=== PATIENT | female | born 1960 | race Caucasian/White ===

== ENCOUNTER 2017-02-17 06:22 | Day surgery (SDC) | payer OTHER ==
[2016-08-26 09:38] VITALS: BMI 36.3
[2017-02-17] MEDS ORDERED: Propofol 10 mg/ml Inj (20 ML) ONE ×2 (08:13→08:30)
--- NOTE | 2017-02-17 08:38 | CP.SDSHP ---
Same Day Surgery H & P - History Proposed Procedure: colonoscopy Pre-Op Diagnosis: colitis - Previous Medical/Surgical History Pulmonary: Asthma - Allergies Allergies: Allergies No Known Allergies Allergy (Verified 08/26/16 09:38) - Physical Exam Vital Signs: Vital Signs 02/17/17 06:55 Temperature 97.4 F L Pulse Rate 86 Respiratory 16 Rate Blood Pressure 109/77 O2 Sat by Pulse 98 Oximetry Mental Status: Alert & Oriented x3 Neuro: WNL Heart: WNL Lungs: WNL GI: WNL - {Optional Preform as Required} Abdomen: WNL - Impression Impression: colitis Pt. Evaluated Today:Candidate for Anesthesia & Procedure: Yes - Date & Time Date: 02/17/17 Time: 08:00 Short Stay Discharge - Short Stay Discharge Admitting Diagnosis/Reason for Visit: COLITIS Disposition: HOME/ ROUTINE
[2017-02-17 09:08] VITALS: O2SAT 100
[2017-02-17 10:44] VITALS: RESP 15; TEMP 97.2
[2017-02-17 10:45] VITALS: BP 111/65; PULSE 72
== END 2017-02-17 10:35 | disposition home or self-care (01) ==
LOC: C.ENDO 06:22
PROVIDERS: ATTEND Internal Medicine Gastroenterology
DX: K52.9 Noninfective gastroenteritis and colitis, unspecified (principal); D12.4 Benign neoplasm of descending colon; D12.2 Benign neoplasm of ascending colon
CPT/HCPCS: 45388; 88305; J2704; J7040

== ENCOUNTER 2017-03-22 10:46 | Emergency (ER) | payer OTHER ==
[2017-03-22 10:46] VITALS: BMI 36.3
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
[2017-03-22] MEDS ORDERED: Lidocaine 5% Patch TD STA (11:16)
[2017-03-22 11:21] VITALS: RESP 20
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
[2017-03-22 13:18] VITALS: BP 92/58; PULSE 74; TEMP 97.8
[2017-03-22 14:07] VITALS: O2SAT 94
== END 2017-03-22 13:25 | disposition home or self-care (01) ==
LOC: C.ER 10:46
DX: S70.02XA Contusion of left hip, initial encounter (principal); V09.29XA Pedestrian injured in traffic accident involving other motor vehicles, initial encounter; Y92.410 Unspecified street and highway as the place of occurrence of the external cause; M54.2 Cervicalgia

== ENCOUNTER 2017-05-12 06:57 | Day surgery (SDC) | payer OTHER ==
[2017-05-12 07:58] VITALS: BMI 33.9
[2017-05-12 08:31] VITALS: TEMP 97.7
[2017-05-12] MEDS ORDERED: Midazolam 2 MG/2 ML VIAL ONE (09:42)
--- NOTE | 2017-05-12 09:42 | CP.SDSHP ---
Same Day Surgery H & P - History Proposed Procedure: endoscopy Pre-Op Diagnosis: abdom pain - Previous Medical/Surgical History Pulmonary: Asthma - Allergies Allergies: Allergies No Known Allergies Allergy (Verified 05/12/17 07:58) - Physical Exam Vital Signs: Vital Signs 05/12/17 08:13 Temperature 97.7 F Pulse Rate 72 Respiratory 19 Rate Blood Pressure 98/60 L O2 Sat by Pulse 97 Oximetry Mental Status: Alert & Oriented x3 Neuro: WNL Heart: WNL Lungs: WNL GI: WNL - {Optional Preform as Required} Abdomen: WNL - Impression Impression: gastritis Pt. Evaluated Today:Candidate for Anesthesia & Procedure: Yes - Date & Time Date: 05/12/17 Time: 09:42 Short Stay Discharge - Short Stay Discharge Admitting Diagnosis/Reason for Visit: GENERALIZED ABDOMINAL PAIN Disposition: HOME/ ROUTINE
[2017-05-12] MEDS ORDERED: Propofol 10 mg/ml Inj (20 ML) ONE (09:43)
[2017-05-12] MEDS ORDERED: Lactated Ringer's 1,000 ML IV ONE (09:49)
[2017-05-12 11:08] VITALS: O2SAT 98
[2017-05-12 11:25] VITALS: BP 102/56; PULSE 64; RESP 18
== END 2017-05-12 11:16 | disposition home or self-care (01) ==
LOC: C.ENDO 06:57
PROVIDERS: ATTEND Internal Medicine Gastroenterology
DX: K29.70 Gastritis, unspecified, without bleeding (principal)
CPT/HCPCS: 43239; 88305; 88342; J2001; J2250; J2704; J7120

== ENCOUNTER 2018-10-21 09:25 | Outpatient (CLI) | payer OTHER | END 2018-10-21 09:26 | disposition home or self-care (01) | LOC: C.RADH 09:25 | DX: R05 Cough (principal) ==